=== PATIENT | male | born 1935 | race Caucasian/White ===

== ENCOUNTER 2018-12-26 12:55 | Outpatient (RCR) | payer MEDICARE ==
[~2018-12-26 12:55] MED LIST: ASPIRIN LOW DOS81 M2 PO; ASPIRIN81 MG PO; CARDIZEM CD240 MG PO; CEFUROXIME AXE250 MG PO; DILTIAZEM240 MG PO; FERAHEME510 MG/17 IV; FERR SULFATE325 MG PO; IRON28 MG PO; LANTISEPTIC EX; MEDDOSEPAK PO; METHYLPRED4 MG PO; METO50TA52 PO; METOCLOPRAM10 MG PO; METOPROLOL SUCC50 MG PO; PREDNISONE PO; PRESERVISION PO; PROTONIX40 M2 PO; PROTONIX40 MG PO; RANITIDINE150 M1 PO; TYLENOL 500MG TAB PO; VITAMIN D2000 UNIT PO; XARELTO10 MG PO; XARELTO20 MG PO; ZYRTEC10 MG PO; [UNRECOGNIZED DRUG - OTHER] EX
== END 2018-12-26 15:00 | disposition home or self-care (01) ==
LOC: OPWC 12:55
PROVIDERS: ATTEND Surgery
DX: I70.212 Atherosclerosis of native arteries of extremities with intermittent claudication, left leg (principal); I70.213 Atherosclerosis of native arteries of extremities with intermittent claudication, bilateral legs; L97.912 Non-pressure chronic ulcer of unspecified part of right lower leg with fat layer exposed; L97.922 Non-pressure chronic ulcer of unspecified part of left lower leg with fat layer exposed
CPT/HCPCS: A6021; A6210

== ENCOUNTER → 2019-01-15 | Outpatient (REF) | payer MEDICARE ==
[2019-01-15 11:08] LABS: ALBUMIN 3.1 g/dL (3.2-5.0); ALKALINE PHOSPHATASE 70 u/l (38-126); ANION GAP 14 (6-22 (CALC)); BILIRUBIN, TOTAL 0.7 mg/dL (0.0-1.4); BUN 16 mg/dL (8-23); BUN/CREATININE RATIO 14 (12-20 (CALC)); CARBON DIOXIDE 27 mmol/l (22-30); CHLORIDE 102 mmol/l (95-108); CREATININE 1.2 mg/dL (0.7-1.3); GFR 58 ML/MIN (>=60 (CALC)); GFR FOR AFR.AMER. > 60 ML/MIN (>=60 (CALC)); POTASSIUM 4.6 mmol/l (3.5-5.1); SGOT/AST 18 u/l (19-48); SODIUM 138 mmol/l (137-146); TOTAL PROTEIN 5.6 g/dL (6.3-8.2)
== END | disposition home or self-care (01) ==
LOC: LAB 10:05
PROVIDERS: ATTEND Internal Medicine
DX: I10 Essential (primary) hypertension (principal); E78.49 Other hyperlipidemia

== ENCOUNTER → 2019-01-16 | Outpatient (REF) | payer MEDICARE | END | disposition home or self-care (01) | LOC: STRESS 10:02 → NUCMED 10:30 | PROVIDERS: ATTEND Internal Medicine | DX: I20.8 Other forms of angina pectoris (principal); I25.9 Chronic ischemic heart disease, unspecified | CPT/HCPCS: A9502; J2785 ==

== ENCOUNTER 2020-09-28 15:51 | Inpatient (IN) | payer MEDICARE ==
[~2020-09-28] VITALS: Ht 182.9 cm; Wt 89.0 kg
--- NOTE | 2020-09-28 15:51 | NUR ---
PT TO ROOM VIA EMS
--- NOTE | 2020-09-28 16:00 | NUR ---
PT STATES THAT HIS LOWER LEGS HAVE BEEN SWELLING AND WEEPING FOR THE PAST 2 DAYS, PTS LEFT LEG IS INFLAMMED, WITH MULTIPLE BLISTERS ON THE FOOT. PT IS AOX4, DENIES ANY OTHER COMPLAINTS AT THIS TIME.
[2020-09-28] MEDS ORDERED: LOSARTAN POTASS25 MG PO (16:13)
[2020-09-28] MEDS ORDERED: PLAVIX75 MG PO (16:13)
[2020-09-28] MEDS ORDERED: OMEPRAZOLE10 MG PO (16:14)
[2020-09-28 16:58] LABS: HEMATOCRIT 45.5 % (39.0-50.0); HEMOGLOBIN 15.3 g/dl (14.0-18.0); IMMATURE GRANULOCYTES 1.9 % (0.0-5.0); MEAN CELL VOLUME 95.4 fL CALC (80.0-100.0); MEAN CORPUSCULAR HGB 32.1 pG CALC (26.0-32.0); MEAN CORPUSCULAR HGB CONC 33.6 g/dL CAL (32.0-36.0); NEUT# 11.79 thou/uL (1.82-7.42); RED BLOOD COUNT 4.77 mill/uL (4.70-6.10); RED CELL DISTRI WIDTH 14.5 % (11.5-15.5)
--- NOTE | 2020-09-28 17:00 | NUR ---
PT RESTING ON STRETCHER, NO COMPLAINTS STATED AT THIS TIME, AWAITING LAB RESULTS.
[2020-09-28 17:09] LABS: CREATININE 1.5 mg/dL (0.7-1.3); TOTAL PROTEIN 5.6 g/dL (6.3-8.2)
[2020-09-28 17:11] LABS: POTASSIUM 3.6 mmol/l (3.5-5.1)
[2020-09-28 17:12] LABS: ALBUMIN 2.6 g/dL (3.2-5.0); BILIRUBIN, TOTAL 1.1 mg/dL (0.0-1.4)
--- NOTE | 2020-09-28 18:00 | NUR ---
PT RESTING ON STRETCHER, IV PATENT WITH ANTIBIOTICS RUNNING.
--- NOTE | 2020-09-28 18:48 | NUR ---
REPORT GIVEN TO ALEM RUANO.
--- NOTE | 2020-09-28 19:35 | NUR ---
DENIES PAIN W/D SKIN SR NO ECTOPY.
--- NOTE | 2020-09-28 20:45 | NUR ---
W/P/D SKIN LLE WRAPPED LOOSELY WITH STERILE ROLL GAUZE ON ORDER DR Rodriguez
--- NOTE | 2020-09-28 20:55 | NUR ---
PHONE REPORT TO NURSE COLEMAN ON MS
--- NOTE | 2020-09-28 21:00 | NUR ---
PT TRANSPORTED TO [facility] IN STABLE CONDITION
[2020-09-28 22:00] VITALS: BP 144/61
[2020-09-29 00:49] VITALS: BP 144/61
--- NOTE | 2020-09-29 01:26 | NUR ---
Pt admitted to unit at 2215. Alert and oriented to person, place, and time. Head to toe assessment completed. Ulcers present on Lower Left Extremity. Discharge and product buildup present between each toe on LLE . Urine niko, clear, free of odor. Pt states last bowel movement was in the morning of 09/28/2020. Abdomen distended and soft. Bowel sounds present in all four quadrants. Capillary refill brisk. Eyes bilaterally perrl. Appropriate range of motion in all four extremities. Complains of pain rated at an 3 refuses pain medications; repositioned as nonpharmaceutical intervention. Requires assistance with ambulation. Call light within reach, pt educated on use. Bed in lowest position and wheels locked. Will continue to moniter
[2020-09-29 03:45] VITALS: BP 127/69
--- NOTE | 2020-09-29 07:45 | NUR ---
REPORT RECEIVED FROM NIGHT NURSE. PT RESTING IN BED SEMI FOWLERS; ALERT AND ORIENTED; HARD OF HEARING. C/O 3/10 PAIN TO LLE; LLE WRAPPED IN KERLEX; KERLEX REMOVED FOR ASSESSMENT; DISCOLORATIONS NOTED WITH LARGE BLISTERS, REDNESS, SWELLING, AND DRAINAGE. UNABLE TO FEEL PEDAL PULSE; AUSCULTATED WEAKLY WITH DOPPLER. DOPPLER ALSO NEEDED FOR RIGHT FOOT; RLE HAS REDNESS, BUT NO OPEN WOUNDS AND SEVERE DISCOLORATION. PT STATES THAT HE HAS HAD STENTS PLACED TO BLE AND VISITED WOUND CARE IN THE PAST AND HIS LEGS HAVE IMPROVED. RESPIRATIONS EVEN AND UNLABORED ON ROOM AIR. LIVES ALONE. IV SITE APPEARS HEALTHY AND FLUSHES. POC REVIEWED. PT ENCOURAGED TO VERBALIZE CONCERNS. STATES UNDERSTANDING. SAFETY MEASURES IN PLACE. CALL LIGHT WITHIN REACH.
[2020-09-29 07:53] LABS: HEMATOCRIT 47.3 % (39.0-50.0); HEMOGLOBIN 15.7 g/dl (14.0-18.0); MEAN CELL VOLUME 96.5 fL CALC (80.0-100.0); MEAN CORPUSCULAR HGB CONC 33.2 g/dL CAL (32.0-36.0); RED BLOOD COUNT 4.9 mill/uL (4.70-6.10); RED CELL DISTRI WIDTH 14.5 % (11.5-15.5)
[2020-09-29 08:15] LABS: CREATININE 1.4 mg/dL (0.7-1.3); POTASSIUM 3.8 mmol/l (3.5-5.1)
[2020-09-29 08:31] VITALS: BP 129/55
--- NOTE | 2020-09-29 08:34 | NUR ---
DR. DALY AND MARIAELENA AT BEDSIDE FOR EVAL.
--- NOTE | 2020-09-29 08:46 | NUR ---
S: SAVANNAH HOWELL is a 85 M who presents with celullitis. He has a history of hypertension, A.Fib, and colon cancer. All medications in patient's chart were reviewed. O: VS: BP 129/55 mmHg, P 76 bpm, RR 22 breaths per minute, T 97. F W 89.4 kg, HT 72 in, Scr= 1.5 mg/dL, CrCl= 44.7 ml/min A: Blood culture is pending. P: Patient is on rocephin 2 g IV q24h @ 0900. Vancomycin ordered for pharmacy to dose. Start Vancomycin 1250 mg IV Q24H. Vancomycin trough is drawn before the 4th dose on 10/02/20 at 1700. Vancomycin goal trough is between 10-15 mcg/ml. Pharmacy will follow and or advise on antibiotics use as needed.
--- NOTE | 2020-09-29 09:30 | NUR ---
IV FLUIDS INITIATED AND ROCEPHIN INFUSING AT THIS TIME; IV APPEARS HEALTHY AND FLUSHES; PT TOLERATING WELL. OTHER SCHEDULED PO MEDS GIVEN NOW WELL. ABHAY UNDER BLE FOR WEEPING/DRAINAGE. WRAPPED IN KERLEX TO PROTECT SKIN.
--- NOTE | 2020-09-29 11:43 | NUR ---
DR. MORRISON AT [facility] BEDSIDE FOR INFECTIOUS DISEASE CONSULT.
[2020-09-29] MEDS ORDERED: COZAAR50 MG PO (11:56)
[2020-09-29] MEDS ORDERED: PLAVIX75 MG PO (12:00)
[2020-09-29] MEDS ORDERED: LANOXIN0.125 MG PO (12:01)
[2020-09-29] MEDS ORDERED: XARELTO15 MG PO (12:03)
--- NOTE | 2020-09-29 13:14 | NUR ---
DR. COPELAND AND BINDU GARCIA AT BEDSIDE FOR WOUND CONSULT.
--- NOTE | 2020-09-29 13:51 | NUR ---
NEW DRESSING ORDERS RECEIVED. DAILY DRESSING WITH XEROFOAM TO OPEN AREAS, COVER WITH ABD, AND WRAP WITH KERLEX GAUZE.
--- NOTE | 2020-09-29 14:30 | NUR ---
PT HAS DIFFICULTY STANDING AND AMBULATING WITH WALKER. HE LIVES ALONE AND STATES, "I HAVE WAYS OF GETTING AROUND THE HOUSE." PHYSICAL THERAPY IS ORDERED FOR PT. ASSISTED INTO BATHROOM FOR BOWEL MOVEMENT; PT HAS STOOL URGENCY.
--- NOTE | 2020-09-29 14:40 | NUR ---
OFF UNIT VIA WHEELCHAIR FOR ULTRASOUND OF LEFT LEG.
--- NOTE | 2020-09-29 15:20 | NUR ---
PT BACK TO UNIT AND RESTING IN BED; TAKES PT MUCH EFFORT TO STAND AND TURN FROM WHEELCHAIR TO BED ALTHOUGH HE IS ABLE TO DO SO INDEPENDENTLY. SOB AND TACHYCARDIC WITH EXERTION; HR 110S-120S AND FACE IS FLUSHED. PT RECOVERING. SPO2 97% ON ROOM AIR. RECONNECTED TO IV FLUIDS.
[2020-09-29 15:41] VITALS: BP 143/52
--- NOTE | 2020-09-29 17:26 | NUR ---
VANCO INFUSING; PT SITTING UP WATCHING TV. LLE DRESSING CDI; LEG ELEVATED ON PILLOW.
[2020-09-29 19:19] VITALS: BP 142/61
--- NOTE | 2020-09-29 20:04 | NUR ---
ASSIGNMENT ACCEPTED FROM NURSE. ASSESSMENT AND VITALS COMPLETED AT THIS TIME. RESPIRATIONS ARE EVEN AND UNLABORED PRESENTLY ON ROOM AIR. HEART RHYTHM IS HEARD NORMAL. BOWEL SOUNDS ARE ACTIVE IN ALL QUADRANTS, LAST REPORTED BM 09/29/2020. #20G IN LAC RUNNING KVO, SITE APPEARS HEALTHY AND PATENT. BILATERAL LOWER LEG CELLULITIS WITH OPEN AREAS, BLISTERING AND WEEPING. PT DENIES OF ANY PAIN OR DISCOMFORTS AT THIS TIME. ALL SAFETY PRECAUTIONS ARE IN PLACE WITH CALL LIGHT IN REACH. WILL CONTINUE TO MONITOR.
--- NOTE | 2020-09-30 00:04 | NUR ---
PT LAYING IN BED WITH EYES CLOSED, APPEARS TO BE SLEEPING, APPEARS COMFORTABLE AND IN NO DISTRESS. RESPIRATIONS REGULAR AND UNLABORED. ITEMS REMAIN WITHIN REACH, CALL STERN REMAINS WITHIN REACH. BED REMAINS LOCKED AND IN LOW POSITION WITH BEDRAILS UP X2. WILL CONTINUE TO MONITOR.
[2020-09-30 04:00] VITALS: BP 128/68
--- NOTE | 2020-09-30 04:04 | NUR ---
PT RESTING IN BED, NO SIGNS OF DISTRESS NOTED, RESP EVEN AND UNLABORED. PT VOICES NO NEEDS OR COMPLAINTS AT THIS TIME. CALL LIGHT IN REACH,CONTINUE TO MONITOR.
[2020-09-30 05:32] LABS: HEMATOCRIT 43.8 % (39.0-50.0); HEMOGLOBIN 14.5 g/dl (14.0-18.0); MEAN CELL VOLUME 96.1 fL CALC (80.0-100.0); MEAN CORPUSCULAR HGB 31.8 pG CALC (26.0-32.0); MEAN CORPUSCULAR HGB CONC 33.1 g/dL CAL (32.0-36.0); RED BLOOD COUNT 4.56 mill/uL (4.70-6.10); RED CELL DISTRI WIDTH 14.5 % (11.5-15.5)
[2020-09-30 05:52] LABS: ALBUMIN 2.3 g/dL (3.2-5.0); ALKALINE PHOSPHATASE 79 u/l (38-126); ANION GAP 10 (6-22 (CALC)); BILIRUBIN, TOTAL 0.9 mg/dL (0.0-1.4); BUN 27 mg/dL (8-23); BUN/CREATININE RATIO 21 (12-20 (CALC)); CARBON DIOXIDE 24 mmol/l (22-30); CHLORIDE 107 mmol/l (95-108); CREATININE 1.3 mg/dL (0.7-1.3); GFR 52 ML/MIN (>=60 (CALC)); GFR FOR AFR.AMER. > 60 ML/MIN (>=60 (CALC)); MAGNESIUM 1.5 mg/dL (1.6-2.3); POTASSIUM 3.6 mmol/l (3.5-5.1); SGOT/AST 34 u/l (19-48); SODIUM 137 mmol/l (137-146); TOTAL PROTEIN 5.2 g/dL (6.3-8.2)
[2020-09-30 07:50] VITALS: BP 147/53
--- NOTE | 2020-09-30 07:50 | NUR ---
ASSESSMENT IS COMPLTED: IV SITE IS FREE FROM REDNESS OR EDEMA. HR IS REG, PULSES ARE STRONG X4, ABD IS SOFT WITH ACTIVE BS. BREATH SOUNDS ARE CLEAR BILATERALLY. LEFT LEG HAS A DRESSING FROM BLISTER AND SORES COEVERDW ITH KERLIX AND ABD AD WITH XEROFORM. SOME BLOOD NOTED. CONTINUE TO OBSERVE AND MONITOR.
--- NOTE | 2020-09-30 07:59 | NUR ---
PRELIMINARY BLOOD CULTURE RESULTS CALLED TO MEAGAN FROST, NO NEW ORDERS AT THIS TIME.
--- NOTE | 2020-09-30 12:15 | NUR ---
PT IS RELAXING IN BED AND VISITING WITH FRIENDS. NO DISTRESS NOTED. IV SITE IS FREE FROM REDNESS OR EDEMA. CONTINUE TO OBSERVE AND MONITOR.
[2020-09-30 15:00] VITALS: BP 133/52
--- NOTE | 2020-09-30 15:30 | NUR ---
REMOVED DRESSING FROM LEFT LEG, BLEEDING NOTED. REPLACED WITH VASELINE GAUZE, ABD PADS AND WRAPPED WITH KERLIX. PT TOLERATED WELL. FAMILY FRIEND IN THE ROOM AND INQUIRED WHAT WAS GOING ON., MEAGAN COLLINS IN TO VISIT AND DISCUSS CASE.
--- NOTE | 2020-09-30 16:00 | NUR ---
pt is relaxing in bed with no distress noted.
[2020-09-30 19:00] VITALS: BP 134/71
--- NOTE | 2020-09-30 19:00 | NUR ---
REPORT RECEIVED FROM Suresh LO LPN, CARE OF PT ASSUMED AT THIS TIME.
--- NOTE | 2020-09-30 20:35 | NUR ---
PT LAYING IN BED, PHYSICAL ASSESMENT COMPLETE. DRESSING TO LLE C/D/I. PLAN OF CARE REVIEWED. PT VERBALIZES UNDERSTANDING AND DENIES QUESTIONS. PT DENIES FURTHER NEEDS AT THIS TIME. CALL STERN WITHIN REACH. AGREES TO CALL PRN.
--- NOTE | 2020-10-01 00:35 | NUR ---
PT APPEARS TO BE SLEEPING COMFORTABLY, LAYING IN BED, EYES CLOSED, RESPIRATIONS REGULAR AND UNLABORED. NO APPARENT DISTRESS. CALL STERN REMAINS WITHIN REACH.
[2020-10-01 04:03] VITALS: BP 142/70
--- NOTE | 2020-10-01 05:29 | NUR ---
HEMODYNAMICS STABLE. PHYSICAL ASSESMENT REMAINS WITHIN BASELINE WITH NO SIGNIFICANT CHANGES. PT RESTING IN BED COMFORTABLY. DENIES ANY FURTHER NEEDS AT THIS TIME. CALL STERN WITHIN REACH, AGREES TO CALL PRN.
[2020-10-01 06:03] LABS: HEMATOCRIT 44.8 % (39.0-50.0); HEMOGLOBIN 14.5 g/dl (14.0-18.0); MEAN CELL VOLUME 97.4 fL CALC (80.0-100.0); MEAN CORPUSCULAR HGB 31.5 pG CALC (26.0-32.0); MEAN CORPUSCULAR HGB CONC 32.4 g/dL CAL (32.0-36.0); RED BLOOD COUNT 4.6 mill/uL (4.70-6.10); RED CELL DISTRI WIDTH 14.6 % (11.5-15.5)
[2020-10-01 06:24] LABS: BUN 27 mg/dL (8-23); BUN/CREATININE RATIO 23 (12-20 (CALC)); CARBON DIOXIDE 27 mmol/l (22-30); CHLORIDE 104 mmol/l (95-108); CREATININE 1.2 mg/dL (0.7-1.3); GFR 57 ML/MIN (>=60 (CALC)); GFR FOR AFR.AMER. > 60 ML/MIN (>=60 (CALC)); SODIUM 138 mmol/l (137-146)
[2020-10-01 06:27] LABS: ANION GAP 11 (6-22 (CALC)); POTASSIUM 3.8 mmol/l (3.5-5.1)
[2020-10-01 07:54] VITALS: BP 157/56
--- NOTE | 2020-10-01 07:54 | NUR ---
PT SITTING IN BED. A&O X3. NO DISTRESS NOTED. PT DENIES ANY PAIN AT THIS TIME. DRESSING TO LLE CDI, EXTREMITY ELEVATED. ASSESSMENT COMPLETED. DISCUSSED POC. CALL LIGHT IN REACH. CONTINUE TO MONITOR.
--- NOTE | 2020-10-01 11:50 | NUR ---
PT SITTING IN BED WATCHING TV. NO DISTRESS OR NEEDS AT THIS TIME. CALL LIGHT IN REACH. CONTINUE TO MONITOR.
[2020-10-01 15:00] VITALS: BP 147/75
--- NOTE | 2020-10-01 16:57 | NUR ---
pt seen for transfer training and therex. Supine ankle DF/PF 2x10. SAQ 2x10. hip abduction 2x10. Supine to sitting on EOB with mod assist. Sit to stand at RW with mod assist. Pt appeared unsteady in standing position. He was able to stand for approx 1min indicating poor endurance. Pt would do well in short term rehab as indicated by [facility] score of 12.
--- NOTE | 2020-10-01 17:02 | NUR ---
PT WAS SEEN FOR TDA THIS AFTERNOON. HE WAS SUPINE RESTING IN BED. HE C/O BURNING PAIN ON L FOOT EXTENDING UP TO LOWER LEG. PT WAS MODIFIED INDEP ON BED MOB AND TRANSITIONING POSITIONS HOWEVER WITH MILD DIFFICULTY. HE PERFORMED MODIFIED INDEP SIT TO STAND USING B UE TO PUSH SELF UP. IMMEDIATE STANDING BALANCE WAS POOR AND UNSTABLE. PT GRABBED THE ROLLING WALKER TO STABILIZE HIMSELF IN STATIC STANDING HOWEVER WAS VERY SHAKY AND UNSTABLE. DESPITE THESE NOTED FUNCTIONAL DEFICITS, PT PREFERS TO BE DISCHARGED HOME. DC RECOMMENDATION OF IN-PT REHAB FOR GEN. CONDITIONING AND STRENGTHENING WAS DISCUSSED WITH PT. HE WAS STILL INSISTENT ON BEING DISCHARGED HOME. AMPA: 11 POINTS
--- NOTE | 2020-10-01 17:14 | NUR ---
DRESSING CHANGE COMPLETED TO LLE PER WOUND CARE PHYSICAN ORDERS. PT TOLERATED WELL. PHOTOGRAPHS OBTAINED. CALL LIGHT IN REACH. CONTINUE TO MONITOR.
--- NOTE | 2020-10-01 19:00 | NUR ---
REPORT RECEIVED FROM Suresh GOLDSTEIN RN, CARE OF PT ASSUMED AT THIS TIME.
[2020-10-01 19:34] VITALS: BP 138/65
--- NOTE | 2020-10-01 20:25 | NUR ---
PT RESTING IN BED, PHYSICAL ASSESMENT COMPLETE. DRESSING TO LLE CLEAN, DRY, INTACT. 250ML CLEAR DEMETRICE URINE EMPTIED FROM URINAL. SCHEDULED MEDICATION AND PRN APAP AND SONATA ADMINISTERED, SEE E-MAR. PLAN OF CARE REVIEWED. PT VERBALIZES UNDERSTANDING AND DENIES QUESTIONS. PT DENIES FURTHER NEEDS AT THIS TIME. CALL STERN WITHIN REACH, AGREES TO CALL PRN.
--- NOTE | 2020-10-02 00:25 | NUR ---
PT APPEARS TO BE SLEEPING COMFORTABLY. LAYING IN BED WITH EYES CLOSED. RESPIRATIONS REGULAR AND UNLABORED. NO APPARENT DISTRESS. CALL STERN REMAINS WITHIN REACH.
[2020-10-02 04:50] VITALS: BP 141/91
--- NOTE | 2020-10-02 07:24 | NUR ---
RECIEVED REPORT FROM BINDU CLARK. PT RESTING IN SEMI FOWLERS POSITION UPON ENTERING ROOM. INTRODUCED SELF TO PT AND DISCUSSED POC. PT IS A/O X3. ASSESSMENT AND VITALS COMPLETED AT THIS TIME. BP 142/90, HR 107, O2 97% ON ROOM AIR. RESIRATIONS ARE EVEN AND UNLABORED ON ROOM AIR. HEART RHYTHM IS NORMAL. BOWEL SOUNDS ARE ACTIVE IN ALL QUADRANTS, LAST REPORTED BM 09/29/2020. PT STATED "I DONT WANT ANYTHING STRONG TO HELP." PRUNE JUICE ADMINISTERED TO ASSIST WITH BM . RADIAL PULSES STRONG. PEDAL PULSES WEAK. DISCOLORATION NOTED TO BLE. DRESSING TO LEFT LOWER EXTREMITY SLIGHTLY SOILED. DRESSING TO BE CHANGED.PT PRESENT WITH SMALL WOUND ON LEFT CHEECK. PT STATES "SHERRY BEEN TELLING THE NURSES SO THE DOCTOR SHOULD KNOWN." YELLOW/ GREENISH DRAINAGE, WOUND CLEANSED. PT TOELRATED WELL. MD TO BE NOTIFIED. PT DENIES ANY PAIN OR DISCOMFORTS AT THIS TIME. ALL SAFTEY PRECAUTIONS ARE IN PLACE WITH CALL LIGHT IN REACH. WILL CONTINUE TO MONITOR.
[2020-10-02 07:27] VITALS: BP 142/90
--- NOTE | 2020-10-02 08:52 | NUR ---
DR DALY AT BEDSIDE DISCUSSING POC WITH PT
--- NOTE | 2020-10-02 10:44 | NUR ---
DRESSING TO LEFT LOWER EXTERMITY CHANGED AT THIS TIME. XEROFORM, ABD PADS AND KRELEX APPLIED. PILLOW PLACE TO ASSIST WITH ELVATING. PT TOLERAT WELL.
--- NOTE | 2020-10-02 11:48 | NUR ---
pt was seen for transfer and gait training. Supine to sitting on EOB with modified independence. Sit to stand at RW with min assist. Pt was unsteady however was able to ambulate to bathroom with min assist. He performed BM and reported feeling much better. Pt had difficulty standing up from toilet and would benefit from in-pt rehab. [facility]=11
[2020-10-02] MEDS ORDERED: CIPROFLOXACN500 MG PO (12:33)
[2020-10-02] MEDS ORDERED: DOXYCYCL HYC100 MG PO (12:34)
--- NOTE | 2020-10-02 12:58 | NUR ---
PT RESTING IN SEMI FOWLERES POSITION. RESPIRATIONS ARE EVEN AND UNLABORED ON ROOM AIR. DC ORDERS ARE IN PLACE. PT NOTIFIED.LEFT LEG ELVATED ON PILLOW. PT DENIES ANY PAIN OR DISCOMFORTS AT THIS TIME. ALL SAFETY PRECAUTIONS ARE IN PLACE, WILL CONTINUE TO MONITOR
--- NOTE | 2020-10-02 13:55 | NUR ---
DC INSTRUCTIONS COMPETED. WAITING FOR CM TO CONFIRMATION OF HOME HEALTH. PT NOTFIED.
[2020-10-02 14:35] VITALS: BP 136/67
--- NOTE | 2020-10-02 15:32 | NUR ---
PT EDUCATED ON DISCHARGE INSTRUCTIONS AND NEW MEDICTAIONS DOXYXLINE AND CIPRO. JAYCE INFORMED OF FOLLOWING UP WITH WOUND CARE AND HOME HEALTH. PT STATED " I THOUGHT WOUND CARE WAS GOING TO COME SEE ME." EVENS EXPLAINED THAT PT WILL HAVE A NURSE GOING TO HOUSE FOR DRESSING CHANGES BUT WOULD HAVE TO STILL GO TO WOUND CARE TO FOLLOW UP WITH. PT STATED "I DONT NEED HOME HEALTHY AND PHYSICAL THERAPY. I MOVE MY SELF. I CANT GO SEE WOUND CARE BEACUSE I CANT GET UP THE STEPS." JAYCE EXPLAINED THAT PHYSCIAL THERAPY WOULD WORK WITH HIM SO HE COULD WALK UP STEPS." PT CONTINUED TO STATE HE DIDNT NEED IT. MANISH NOTIFIED PT THAT HOME HEALTH WOULD BE GIVING HIM A CALL TO HELP SORT THINGS OUT. PT VERBAILZED UNDERSTANDING. ALL SFAETY PRECAUTIONS ARE IN PLACE WIHT CALL LIGHT IN REACH. WAITING FOR TRANSPORTATION AT THIS TIME.WILL CONTINUE TO MONITOR
--- NOTE | 2020-10-02 16:28 | NUR ---
Discharge instructions given. Patient verbalizes understanding of same. Discharged in stable condition via Wheelchair to Home with family. All belongings sent with pt. PT DISCHARGED HOME WITH [facility]. PT DISCHARGED IN STABLE CONDITION VIA WHEELCHAIR ACCOMPAINED [facility] WITH ALL DISCHARGE INSTRUCTIONS AND PAPERWORK.
== END 2020-10-02 16:28 | disposition home health service (06) | DRG 603 ==
LOC: ED 15:51 → ED-I 16:14 → ED 19:02 → MS2 19:03
PROVIDERS: Family Medicine; Nurse Practitioner; ADMIT Internal Medicine; ATTEND Internal Medicine
DX: L03.116 Cellulitis of left lower limb (principal); I48.20 Chronic atrial fibrillation, unspecified; I73.9 Peripheral vascular disease, unspecified; I12.9 Hypertensive chronic kidney disease with stage 1 through stage 4 chronic kidney disease, or unspecified chronic kidney disease; N18.9 Chronic kidney disease, unspecified; I25.10 Atherosclerotic heart disease of native coronary artery without angina pectoris; K21.9 Gastro-esophageal reflux disease without esophagitis; E83.42 Hypomagnesemia; B95.62 Methicillin resistant Staphylococcus aureus infection as the cause of diseases classified elsewhere; B96.5 Pseudomonas (aeruginosa) (mallei) (pseudomallei) as the cause of diseases classified elsewhere; Z95.5 Presence of coronary angioplasty implant and graft; Z87.891 Personal history of nicotine dependence; Z79.01 Long term (current) use of anticoagulants; Z95.820 Peripheral vascular angioplasty status with implants and grafts; Z85.038 Personal history of other malignant neoplasm of large intestine; Z20.828 Contact with and (suspected) exposure to other viral communicable diseases
CPT/HCPCS: J0692; J3370; J3475; Q3014

== ENCOUNTER 2020-10-15 17:42 | Emergency (ER) | payer MEDICARE ==
[~2020-10-15] VITALS: Ht 182.9 cm; Wt 100.0 kg
[~2020-10-15 17:42] MED LIST changes: +CIPROFLOXACN500 MG PO; +COZAAR50 MG PO; +DOXYCYCL HYC100 MG PO; +LANOXIN0.125 MG PO; +LOSARTAN POTASS25 MG PO; +OMEPRAZOLE10 MG PO; +PLAVIX75 MG PO; +XARELTO15 MG PO
[2020-10-15 18:24] LABS: IMMATURE GRANULOCYTES 0.5 % (0.0-5.0); MEAN CORPUSCULAR HGB 31.7 pG CALC (26.0-32.0); MEAN CORPUSCULAR HGB CONC 31.7 g/dL CAL (32.0-36.0); NEUT# 6.28 thou/uL (1.82-7.42); RED BLOOD COUNT 3.34 mill/uL (4.70-6.10); RED CELL DISTRI WIDTH 14.9 % (11.5-15.5)
[2020-10-15 18:25] LABS: HEMATOCRIT 33.4 % (39.0-50.0); HEMOGLOBIN 10.6 g/dl (14.0-18.0)
[2020-10-15 18:46] LABS: ALBUMIN 2.4 g/dL (3.2-5.0); ALKALINE PHOSPHATASE 66 u/l (38-126); AMYLASE 52 u/l (30-110); BILIRUBIN, TOTAL 0.6 mg/dL (0.0-1.4); CHLORIDE 114 mmol/l (95-108); CPK 38 u/l (52-200); CREATININE 1.8 mg/dL (0.7-1.3); ETHYL ALCOHOL 0 mg/dl (0-30); GFR 36 ML/MIN (>=60 (CALC)); GFR FOR AFR.AMER. 44 ML/MIN (>=60 (CALC)); LIPASE 90 u/l (23-300); SODIUM 143 mmol/l (137-146); TOTAL PROTEIN 5.3 g/dL (6.3-8.2)
[2020-10-15 18:48] LABS: ACT PARTIAL THROMBO TIME 31.4 SECONDS (20.0-32.5); INTERNATIONAL NORMALIZED RATIO 1.5 RATIO (0.7-1.3); PROTHROMBIN TIME 14.8 SECONDS (9.0-12.5)
[2020-10-15 18:50] LABS: ANION GAP 14 (6-22 (CALC)); BUN 56 mg/dL (8-23); BUN/CREATININE RATIO 31 (12-20 (CALC)); CARBON DIOXIDE 19 mmol/l (22-30); SGOT/AST 67 u/l (19-48)
[2020-10-15 19:54] LABS: DIGOXIN 0.7 ng/mL (0.8-2.0)
[2020-10-15 23:47] VITALS: BP 114/57
== END 2020-10-16 00:12 | disposition short-term general hospital (02) ==
LOC: ED 17:42
DX: A41.9 Sepsis, unspecified organism (principal); J18.9 Pneumonia, unspecified organism; K92.2 Gastrointestinal hemorrhage, unspecified; I48.91 Unspecified atrial fibrillation; I10 Essential (primary) hypertension; I73.9 Peripheral vascular disease, unspecified; Z79.01 Long term (current) use of anticoagulants; Z79.02 Long term (current) use of antithrombotics/antiplatelets; Z95.5 Presence of coronary angioplasty implant and graft; Z20.828 Contact with and (suspected) exposure to other viral communicable diseases
CPT/HCPCS: S0164